=== PATIENT | male | born 1970 | race Caucasian/White ===

== ENCOUNTER → 2016-06-22 | Outpatient (CLI) | payer BC | LOC: KOH-I 16:03 | DX: N20.0 Calculus of kidney (principal); R31.9 Hematuria, unspecified | CPT/HCPCS: 74000 ==

== ENCOUNTER → 2016-08-02 | Outpatient (CLI) | payer BC | LOC: KOH-I 11:14 | DX: R10.9 Unspecified abdominal pain (principal); N20.0 Calculus of kidney | CPT/HCPCS: 74176 ==

== ENCOUNTER 2020-05-07 17:06 | Emergency (ER) | payer BC ==
[~2020-05-07 17:06] MED LIST: ATORVASTATIN CA10 MG PO; IBU800 MG PO; IMITREX50 MG PO; VITAMIN D31250 MCG PO
[2020-05-07 19:24] LABS: RED BLOOD COUNT 5.03 M/UL (4.20-5.50); WHITE BLOOD COUNT 13.4 K/UL (4.5-11.0)
[2020-05-07] MEDS ORDERED: HYDROCODON-ACE1 EAC4 PO (21:40)
[2020-05-07] MEDS ORDERED: ZOFRAN ODT 4 MG4 MG PO (21:47)
[2020-05-07] MEDS ORDERED: FLOMAX 0.4 MG0.4 MG PO (21:47)
== END 2020-05-07 21:55 | disposition home or self-care (01) ==
LOC: ER1 17:06
PROVIDERS: Emergency Medicine
DX: N13.2 Hydronephrosis with renal and ureteral calculous obstruction (principal)
CPT/HCPCS: 80053; 81001; 83690; 85025; 99284; Q9967

== ENCOUNTER → 2020-08-14 | Outpatient (CLI) | payer BC ==
[~2020-08-14] MED LIST changes: +FLOMAX 0.4 MG0.4 MG PO; +HYDROCODON-ACE1 EAC4 PO; +ZOFRAN ODT 4 MG4 MG PO
== END ==
LOC: EXRD 06-04 14:30
DX: N28.9 Disorder of kidney and ureter, unspecified (principal); R94.4 Abnormal results of kidney function studies
CPT/HCPCS: 76775

== ENCOUNTER → 2021-05-23 | Outpatient (CLI) | payer BC ==
[2021-05-23 09:14] LABS: HEMOGLOBIN 14.8 gm/dl (14.0-17.5); RED BLOOD COUNT 4.96 M/UL (4.20-5.50); WHITE BLOOD COUNT 6.4 K/UL (4.5-11.0)
[2021-05-23 10:16] LABS: BUN/CREATININE RATIO 8 (0-10)
== END ==
LOC: LAB 08:55
PROVIDERS: Physician Assistant
DX: E78.5 Hyperlipidemia, unspecified (principal); E55.9 Vitamin D deficiency, unspecified; N28.9 Disorder of kidney and ureter, unspecified
CPT/HCPCS: 36415; 80048; 80061; 80076; 82607; 84443; 85025

== ENCOUNTER → 2021-07-02 | Day surgery (SDC) | payer BC ==
[~2021-07-02] MED LIST changes: +FISH OIL 1,0001 EACH PO; +LIPITOR10 MG PO; +VAZALORE81 MG PO; +VITAMIN B-121000 MCG PO; +VITAMIN D-40010 MCG PO; +ZYRTEC10 MG PO
== END | disposition home or self-care (01) ==
LOC: OR 07:54
DX: K22.2 Esophageal obstruction (principal); K20.0 Eosinophilic esophagitis; K29.50 Unspecified chronic gastritis without bleeding; K29.80 Duodenitis without bleeding; E78.00 Pure hypercholesterolemia, unspecified; E78.5 Hyperlipidemia, unspecified; E66.9 Obesity, unspecified; Z68.32 Body mass index [BMI] 32.0-32.9, adult; Z79.82 Long term (current) use of aspirin; Z79.899 Other long term (current) drug therapy; Z20.822 Contact with and (suspected) exposure to COVID-19
CPT/HCPCS: J2704; J7040

== ENCOUNTER → 2021-09-18 | Outpatient (CLI) | payer BC | LOC: KOH-I 09-14 16:00 | DX: N50.89 Other specified disorders of the male genital organs (principal) | CPT/HCPCS: 76870 ==

== ENCOUNTER → 2021-11-20 | Outpatient (CLI) | payer BC | LOC: KOH-I 11:06 | DX: R10.9 Unspecified abdominal pain (principal) | CPT/HCPCS: 74018 ==